=== PATIENT | female | born 1960 | race Native Hawaiian/Other Pacific Islander ===

== ENCOUNTER 2016-12-23 18:48 | Emergency (ER) | payer OTHER ==
[~2016-12-23] VITALS: Ht 167.6 cm; Wt 71.2 kg
[2016-12-23 20:21] LABS: PLATELET COUNT 175 K/uL (152-353)
[2016-12-23 20:31] LABS: POTASSIUM 3.7 mmol/L (3.6-5.2); SODIUM 139 mmol/L (136-145)
[2016-12-23 20:32] VITALS: BP 129/80; TEMP 99.3
== END 2016-12-23 20:36 | disposition home or self-care (01) ==
LOC: ED 18:48
DX: J44.1 Chronic obstructive pulmonary disease with (acute) exacerbation (principal); K64.8 Other hemorrhoids
CPT/HCPCS: 36415; 80053; 85027; 96374; 99284; J2930

== ENCOUNTER 2017-01-09 12:44 | Emergency (ER) | payer BC ==
[~2017-01-09] VITALS: Ht 170.2 cm; Wt 68.0 kg
[2017-01-09 13:49] VITALS: BP 126/74; TEMP 99
== END 2017-01-09 13:55 | disposition home or self-care (01) ==
LOC: ED 12:44
DX: J42 Unspecified chronic bronchitis (principal); J44.9 Chronic obstructive pulmonary disease, unspecified; F17.200 Nicotine dependence, unspecified, uncomplicated
CPT/HCPCS: 99281

== ENCOUNTER 2018-01-04 08:28 | Emergency (ER) | payer OTHER ==
[~2018-01-04] VITALS: Ht 167.6 cm; Wt 72.6 kg
[2018-01-04 08:38] VITALS: TEMP 98.2
[2018-01-04 10:30] VITALS: BP 168/98
== END 2018-01-04 10:39 | disposition home or self-care (01) ==
LOC: ED 08:28
DX: M77.02 Medial epicondylitis, left elbow (principal)
CPT/HCPCS: 96372; 99282; J1885

== ENCOUNTER 2018-06-01 12:40 | Emergency (ER) | payer OTHER ==
[~2018-06-01] VITALS: Ht 167.6 cm; Wt 69.9 kg
[2018-06-01 12:45] VITALS: TEMP 98.3
[2018-06-01 13:04] LABS: PLATELET COUNT 179 K/uL (152-353)
[2018-06-01 13:15] LABS: SODIUM 140 mmol/L (136-145)
[2018-06-01 14:59] VITALS: BP 162/99
== END 2018-06-01 15:10 | disposition home or self-care (01) ==
LOC: ED 12:40
DX: R07.89 Other chest pain (principal)
CPT/HCPCS: 80053; 81000; 84484; 85027; 93005; 99284

== ENCOUNTER 2019-06-17 17:56 | Emergency (ER) | payer OTHER ==
[~2019-06-17] VITALS: Ht 167.6 cm; Wt 69.9 kg
[2019-06-17 19:17] LABS: PLATELET COUNT 201 K/uL (152-353)
[2019-06-17 19:23] LABS: POTASSIUM 4.1 mmol/L (3.6-5.2)
[2019-06-17 22:15] VITALS: BP 126/83; TEMP 98.2
== END 2019-06-17 22:15 | disposition home or self-care (01) ==
LOC: ED 17:56
PROVIDERS: Emergency Medicine
DX: R10.84 Generalized abdominal pain (principal); R14.0 Abdominal distension (gaseous); R11.0 Nausea
CPT/HCPCS: 80053; 82150; 83690; 85027; 96372; 99283; J2405

== ENCOUNTER → 2019-09-24 08:10 | Outpatient (CLI) | payer OTHER | END | disposition home or self-care (01) | LOC: AMB 08:10 | DX: Z04.1 Encounter for examination and observation following transport accident (principal); M54.2 Cervicalgia; M54.9 Dorsalgia, unspecified ==

== ENCOUNTER 2019-09-24 09:12 | Emergency (ER) | payer OTHER ==
[~2019-09-24] VITALS: Ht 167.6 cm; Wt 69.9 kg
[2019-09-24 11:03] VITALS: BP 130/85; TEMP 97.2
== END 2019-09-24 11:05 | disposition home or self-care (01) ==
LOC: ED 09:12
DX: S16.1XXA Strain of muscle, fascia and tendon at neck level, initial encounter (principal); I10 Essential (primary) hypertension; F17.210 Nicotine dependence, cigarettes, uncomplicated; V49.40XA Driver injured in collision with unspecified motor vehicles in traffic accident, initial encounter
CPT/HCPCS: 99283

== ENCOUNTER 2020-12-09 22:56 | Emergency (ER) | payer OTHER ==
[~2020-12-09] VITALS: Ht 167.6 cm; Wt 73.5 kg
[2020-12-09 23:41] VITALS: BP 138/82; TEMP 97.9
== END 2020-12-09 23:41 | disposition home or self-care (01) ==
LOC: ED 22:56
DX: G62.89 Other specified polyneuropathies (principal)
CPT/HCPCS: 96372; 99283; J1885

== ENCOUNTER 2021-01-30 01:25 | Emergency (ER) | payer OTHER ==
[~2021-01-30] VITALS: Ht 167.6 cm; Wt 71.7 kg
[2021-01-30 02:27] LABS: PLATELET COUNT 189 K/uL (152-353)
[2021-01-30 02:53] LABS: POTASSIUM 4.1 mmol/L (3.6-5.2)
[2021-01-30 04:21] VITALS: BP 142/78; TEMP 97.9
== END 2021-01-30 04:21 | disposition home or self-care (01) ==
LOC: ED 01:25
PROVIDERS: Emergency Medicine Emergency Medical Services
DX: R10.84 Generalized abdominal pain (principal)
CPT/HCPCS: 36415; 80053; 81000; 82150; 83690; 85027; 96360; 96361; 96375; 99284; J1885; J2405; Q9963

== ENCOUNTER 2022-03-13 17:18 | Emergency (ER) | payer OTHER ==
[~2022-03-13] VITALS: Ht 167.6 cm; Wt 71.7 kg
[2022-03-13 17:53] LABS: POTASSIUM 3.5 mmol/L (3.6-5.2)
[2022-03-13 18:03] LABS: PLATELET COUNT 155 K/uL (152-353)
[2022-03-13 22:51] VITALS: BP 118/88; TEMP 97.6
== END 2022-03-13 22:51 | disposition home or self-care (01) ==
LOC: ED 17:18
PROVIDERS: Hospitalist
DX: R19.7 Diarrhea, unspecified (principal); R11.2 Nausea with vomiting, unspecified; K52.89 Other specified noninfective gastroenteritis and colitis; E86.0 Dehydration; Z20.822 Contact with and (suspected) exposure to COVID-19
CPT/HCPCS: 36415; 80053; 81000; 83605; 83690; 85027; 87040; 87635; 96360; 96365; 96375; 99284; J2405; J2543; Q9963; U0003

== ENCOUNTER 2022-04-08 16:36 | Outpatient (CLI) | payer OTHER ==
[2022-04-08 17:11] LABS: PLATELET COUNT 188 K/uL (152-353)
[2022-04-08 17:23] LABS: PARTIAL THROMBOPLASTIN TIME 24.3 SECONDS (24.5-33.6)
[2022-04-08 17:33] LABS: POTASSIUM 4.6 mmol/L (3.6-5.2)
== END 2022-04-08 18:55 | disposition home or self-care (01) ==
LOC: LABW 16:36 → RESP 16:36 → LABW 18:55
PROVIDERS: ATTEND Orthopaedic Surgery Foot and Ankle Surgery
DX: M87.071 Idiopathic aseptic necrosis of right ankle (principal)
CPT/HCPCS: 36415; 80048; 82306; 85027; 85610; 85730

== ENCOUNTER 2022-07-30 10:29 | Emergency (ER) | payer OTHER ==
[~2022-07-30] VITALS: Ht 167.6 cm; Wt 67.6 kg
[2022-07-30 10:34] VITALS: BP 132/91
[2022-07-30 11:52] VITALS: TEMP 99.1
== END 2022-07-30 11:52 | disposition home or self-care (01) ==
LOC: ED 10:29
DX: J20.9 Acute bronchitis, unspecified (principal); Z11.52 Encounter for screening for COVID-19
CPT/HCPCS: 87502; 87635; 87651; 99283; U0003

== ENCOUNTER 2023-02-09 12:44 | Outpatient (CLI) | payer OTHER | END 2023-02-09 19:11 | disposition home or self-care (01) | LOC: LABW 12:44 | PROVIDERS: ATTEND Podiatrist | DX: Z01.818 Encounter for other preprocedural examination (principal); M10.071 Idiopathic gout, right ankle and foot | CPT/HCPCS: 36415; 80307; 84550; 86140 ==